=== PATIENT | female | born 1990 | race Caucasian/White ===

== ENCOUNTER 2019-09-10 15:34 | Emergency (ER) | payer MEDICAID, OTHER, SELFPAY ==
[~2019-09-10] VITALS: Ht 175.3 cm; Wt 78.0 kg
[2019-09-10] MEDS ORDERED: SODIUM CHLORIDE 0.9% 1,000ML IVBOLUS ONE (16:00)
[2019-09-10] MEDS ORDERED: METOCLOPRAMIDE 5 MG/ML, 2ML IVPush ONE (16:00)
[2019-09-10] MEDS ORDERED: LORazepam 2 MG/ML, 1ML IVPush ONE (16:00)
[2019-09-10] MEDS ORDERED: DIPHENHYDRAMINE 50 MG/ML, 1ML IVPush ONE (16:00)
[2019-09-10 16:07] LABS: MEAN CORPUSCULAR HEMOGLOBIN 29.3 pg (27.0-34.8); MEAN CORPUSCULAR HGB CONC 33.6 g/dL (32.4-35.8); MEAN CORPUSCULAR VOLUME 87.1 fL (80-100); MEAN PLATELET VOLUME 6.9 fL (7.4-10.4); PLATELET COUNT 172 x10^3/uL (130-400); RED BLOOD COUNT 5.25 x10^6/uL (3.82-5.3); RED CELL DISTRIBUTION WIDTH 12.9 % (9.6-15.2)
[2019-09-10 16:17] LABS: ALBUMIN 3.6 g/dL (3.4-5.0); ANION GAP 10 mmol/L (5-15); CHLORIDE 111 mmol/L (98-107)
[2019-09-10 16:21] LABS: ALANINE AMINOTRANSFERASE 20 U/L (12-78); ALKALINE PHOSPHATASE 90 U/L (45-117); BILIRUBIN,TOTAL 0.8 mg/dL (0.2-1.0); CREATININE 0.91 mg/dL (0.55-1.02); TOTAL PROTEIN 7.6 g/dL (6.4-8.2)
[2019-09-10 16:25] LABS: MD YES
[2019-09-10 16:32] LABS: BAND#(MANUAL) 0.29 x10^3/uL; BANDS%(MANUAL) 12 % (0-7); EOS#(MANUAL) 0.05 x10^3/uL (0.0-0.4); EOS% (MANUAL) 2 % (1-7); LYMPH#(MANUAL) 0.67 x10^3/uL (1-3.4); LYMPHS% (MANUAL) 28 % (22-44); SEG#(MANUAL) 1.39 x10^3/uL (1.8-6.8); SEGS% (MANUAL) 58 % (42-75)
[2019-09-10 16:34] LABS: <PLATELET ESTIMATE> ADEQUATE; <PLT MORPHOLOGY> NORMAL PLT MORPH; <RBC MORPHOLOGY> NORMAL
--- NOTE | 2019-09-10 16:37 | NUR ---
TASK RN: FIRST CONTACT WITH PT. Pt refusing to provide urine sample at this time. Pt states, "not yet". Pt refuses straight cath.
--- NOTE | 2019-09-10 16:38 | NUR ---
TASK RN: Called CT for ETA. Per CT, "she is second on my list right now."
--- NOTE | 2019-09-10 16:58 | NUR ---
Pt at [facility] on [facility] at this time.
--- NOTE | 2019-09-10 17:04 | NUR ---
Pt back to room from CT at this time.
[2019-09-10] MEDS ORDERED: METOCLOPRAMIDE 5 MG/ML, 2ML ONE (17:16)
[2019-09-10] MEDS ORDERED: DIPHENHYDRAMINE 50 MG/ML, 1ML ONE (17:16)
--- NOTE | 2019-09-10 17:22 | NUR ---
ct unable to complete as pt had to go to the restroom and was unsure if she could walk. pt brought back to room. pt up to restroom and ambulates with a steady gait. ua sent pt medicated.
[2019-09-10 17:40] LABS: MICROSCOPIC AUTO
--- NOTE | 2019-09-10 17:57 | NUR ---
pt back from ct. waiting on read. pt is comfortable in bed at this time. bed sheets were changed and warm blankets provided.
[2019-09-10 20:05] VITALS: BP 128/68
== END 2019-09-10 20:08 | disposition home or self-care (01) ==
LOC: ED 15:49
DX: G43.919 Migraine, unspecified, intractable, without status migrainosus (principal); F41.9 Anxiety disorder, unspecified; F15.10 Other stimulant abuse, uncomplicated
CPT/HCPCS: 36415; 70450; 80053; 80307; 81001; 84703; 85025; 87086; 96374; 96375; 99284; J1200; J2765; J7030

== ENCOUNTER 2020-05-16 14:31 | Emergency (ER) | payer MEDICAID ==
[~2020-05-16] VITALS: Ht 172.7 cm; Wt 92.0 kg
--- NOTE | 2020-05-16 14:49 | NUR ---
PT STATES PAIN STARTED A HALF HOUR AGO IN HER LEGS AND GOING UP HER BODY INTO A MCCRARY. PT CRYING, DIAPHORETIC AND STATES SHE IS AFRAID SOMETHING IS WRONG. PT STATES SHE HAS HAD A SIMILAR EPISODE THIS MONTH AND SEEN AT [facility] AND TOLD IT WAS A MIGRAINE. SHE IS WORRIED SOMETHING IS WRONG WITH HER AND IT IS MORE THAN A MCCRARY
[2020-05-16] MEDS ORDERED: KETOROLAC 30 MG/1 ML IVPush ONE (15:00)
[2020-05-16] MEDS ORDERED: DIAZEPAM 5 MG/ML, 2ML IVPush ONE (15:00)
[2020-05-16] MEDS ORDERED: SODIUM CHLORIDE 0.9% 1,000ML IVBOLUS ONE (15:00)
[2020-05-16] MEDS ORDERED: SODIUM CHLORIDE FLUSH 10ML SYR IVF ONE (15:00)
[2020-05-16] MEDS ORDERED: METOCLOPRAMIDE 5 MG/ML, 2ML IVPush ONE (15:00)
[2020-05-16] MEDS ORDERED: DIAZEPAM 5 MG/ML, 2ML ONE (15:14)
[2020-05-16] MEDS ORDERED: METOCLOPRAMIDE 5 MG/ML, 2ML ONE (15:20)
[2020-05-16] MEDS ORDERED: KETOROLAC 30 MG/1 ML ONE (15:20)
[2020-05-16 15:27] LABS: BASOPHILS % (AUTO) 0 % (0-1); EOSINOPHILS # (AUTO) 0.02 x10^3/uL (0-0.4); EOSINOPHILS % (AUTO) 0 % (1-7); LYMPHOCYTES # (AUTO) 0.76 x10^3/uL (1-3.4); LYMPHOCYTES % (AUTO) 9 % (22-44); MD NO; MEAN CORPUSCULAR HEMOGLOBIN 29.1 pg (27.0-34.8); MEAN CORPUSCULAR HGB CONC 33.2 g/dL (32.4-35.8); MEAN CORPUSCULAR VOLUME 87.8 fL (80-100); MEAN PLATELET VOLUME 7.4 fL (7.4-10.4); MONOCYTES # (AUTO) 0.02 x10^3/uL (0.2-0.8); MONOCYTES % (AUTO) 0 % (2-9); NEUTROPHILS # (AUTO) 7.96 x10^3/uL (1.8-6.8); NEUTROPHILS % (AUTO) 91 % (42-75); PLATELET COUNT 268 x10^3/uL (130-400); RED BLOOD COUNT 5.48 x10^6/uL (3.82-5.3); RED CELL DISTRIBUTION WIDTH 13.5 % (9.6-15.2)
[2020-05-16 15:36] LABS: ALANINE AMINOTRANSFERASE 39 U/L (12-78); ANION GAP 9 mmol/L (5-15); CALCIUM 9.9 mg/dL (8.5-10.1); CHLORIDE 107 mmol/L (98-107); CREATININE 1.16 mg/dL (0.55-1.02)
[2020-05-16 15:38] LABS: ALKALINE PHOSPHATASE 126 U/L (45-117); TOTAL PROTEIN 8.4 g/dL (6.4-8.2)
--- NOTE | 2020-05-16 15:45 | NUR ---
PT VERY ANXIOUS UNTIL MEDICATED NOTED ON OCT. PT NOW LYING IN GURNEY WITH CLOTH OVER EYES. BACK AND HIP PAIN ALONG WITH MCCRARY IMPROVED. AWAITING CT
--- NOTE | 2020-05-16 17:22 | NUR ---
PT FEELING BETTER, NO LONGER ANXIOUS.
[2020-05-16 17:35] VITALS: BP 132/80
== END 2020-05-16 17:37 | disposition home or self-care (01) ==
LOC: ED 17:29
DX: G43.C0 Periodic headache syndromes in child or adult, not intractable (principal); R00.0 Tachycardia, unspecified
CPT/HCPCS: 36415; 70450; 80053; 85025; 96361; 96374; 96375; 99284; J1885; J2765; J3360; J7030

== ENCOUNTER 2021-03-10 17:16 | Emergency (ER) | payer MEDICAID ==
[~2021-03-10] VITALS: Ht 175.3 cm; Wt 108.9 kg
[2021-03-10 17:23] VITALS: BP 142/93
--- NOTE | 2021-03-10 17:43 | NUR ---
pt presents to ed with c/o dental pain and facial swelling, states "hard bump" on R side of face. pt states they had dental surgery a week ago, is taking anx but states they do not think they are working. pt a&o, resps even and unlabored, vss, nadn.
--- NOTE | 2021-03-10 18:15 | NUR ---
lulu Lopez at bedside for eval
--- NOTE | 2021-03-10 18:42 | NUR ---
discharge instructions reviewed, pt verbalized understanding. ambulatory to discharge with steady gait.
== END 2021-03-10 18:45 | disposition home or self-care (01) ==
LOC: ED 18:39
DX: K04.7 Periapical abscess without sinus (principal); K08.89 Other specified disorders of teeth and supporting structures
CPT/HCPCS: 99283